=== PATIENT | female | born 1995 | race Two or more races ===

== ENCOUNTER 2024-10-14 19:23 | Emergency (ER) | payer OTHER, MEDICAID, SELFPAY ==
[2024-10-14 19:24] VITALS: BMI 33.6
[2024-10-14 19:38] VITALS: BP 131/79; PULSE 74; RESP 18; TEMP 36.9; O2SAT 97
--- NOTE | 2024-10-14 20:10 | EDNOTE_ITS ---
ED Allergic Reaction RME/HPI General Chief complaint: Allergic Reaction Stated complaint: FACIAL AND UPPER ARM SWELLING X 1 WEEK Time Seen by Provider: 10/14/24 19:58 Arrival date/time: 10/14/24 19:23 RME / HPI RME / HPI narrative: 29-year-old female presents to the ED with a 1 week history of swelling to her face, upper extremities, and lower extremities. She denies any difficulty breathing or difficulty swallowing. She denies any new medications, soaps, foods etc. She was seen by her primary care physician earlier today and told to buy [id number] water pills. We also did lab work. She denies any pain to her joints. She denies any recent illness with fever, chills, cough, upper respiratory complaints, nausea or vomiting, diarrhea or abdominal pain. She denies any dysuria, frequency, flank pain or low back pain. Related Data Home Medications ?Medication ?Instructions ?Recorded ?Confirmed vitamin-ferrous fumarate 1 tab PO QDAY 05/02/22 28 mg iron-folic acid 800 mcg tablet ( Vitamins with Minerals) Previous Rx's ?Medication ?Instructions ?Recorded ibuprofen 600 mg tablet 600 mg PO Q6H PRN pain #30 t abs 05/06/22 hydrochlorothiazide 12.5 mg tablet 12.5 mg PO QAM #30 tabs 10/15/24 Allergies Allergy/AdvReac Type Severity Reaction Status Date / Time No Known Allergies Allergy Verified 10/14/24 19:26 Review of Systems Review of Systems Systems Reviewed: All systems reviewed, normal except as documented Past Medical History Past Medical History NEUROLOGIC: Negative Neurological Disorders CARDIAC: Negative Cardiac Disorders or Congestive Heart Failure RESPIRATORY: Negative Chronic Obstructive Pulmonary Disease (COPD) or Asthma GASTROINTESTINAL: Negative Gastrointestinal Disorders GENITOURINARY: Negative Genitourinary Disorders or Renal Disease REPRODUCTIVE: Negative Pelvic Inflammatory Disease MUSCULOSKELETAL: Negative Musculoskeletal Disorders or Scoliosis ENDOCRINE: Negative Endocrine Disorders, Diabetes Mellitus Type 1 or Diabetes Mellitus Type 2 HEMATOLOGIC: Negative Blood Disorders or Anemia PSYCHO/SOCIAL: Negative Depression or Anxiety OTHER HISTORY: Negative Autoimmune Disease Family History FAMILY HISTORY: Positive Family Cardiac Disorders (sister developed blood clots throughout body after her delivery); Negative Family Psychiatric Problems, Family Respiratory Disorders, Family Gastrointestinal Problems, Family Cancer, Family Surgery or Family Anesthesia Reaction Social History SMOKING STATUS: Never smoker ED Exam Narrative Physical exam: Alert and oriented 29-year-old female, no acute distress. Mild edema noted to the face and upper extremities. 1+ pitting edema noted to bilateral lower extremities. No lip or tongue swelling is noted. No wheezing or stridor is noted. Lungs are clear, regular rate and rhythm without murmurs. Course Course Course Narrative: CBC reveals a normal white count, normal H&H and platelets. ESR is normal at less than 1. Chemistry panel is essentially normal with minimal changes. Normal renal function and liver function. BNP is less than 20, CRP is less than 0.5. TSH is normal at 3.67 and free T4 is normal at 1.15. Urinalysis is clear colorless urine with a specific gravity of 1.005 with negative nitrites and negative leukocyte Estrace and no bacteria. No imaging studies were performed. Quality Measures none Orders Category Date Time Status BNP [B-Type Natriuretic Peptide] Stat Lab 10/14/24 20:38 Completed CBC Stat Lab 10/14/24 20:38 Completed CMP [Comprehensive Metabolic Panel] Stat Lab 10/14/24 20:38 Completed CRP [C-Reactive Protein] Stat Lab 10/14/24 20:38 Completed ESR [Sed Rate (ESR)] Stat Lab 10/14/24 20:38 Completed Free T4 (Free Thyroxine) Stat Lab 10/14/24 20:38 Completed TSH [Thyroid Stimulating Hormone] Stat Lab 10/14/24 20:38 Completed Urinalysis Stat Lab 10/14/24 21:11 Completed Vital Signs Vital signs: Vital Signs Temperature 98.4 F 10/14/24 19:38 Pulse Rate 74 10/14/24 19:38 Respiratory Rate 18 10/14/24 19:38 Blood Pressure 131/79 H 10/14/24 19:38 Pulse Oximetry (%) 97 10/14/24 19:38 Oxygen Delivery Method Room Air 10/14/24 19:38 Allergic Reaction MDM Narrative MDM Narrative:: 29-year-old female presents to the ED with a 1 week history of swelling to her face, upper extremities, and lower extremities. She denies any difficulty breathing or difficulty swallowing. She denies any new medications, soaps, foods etc. She was seen by her primary care physician earlier today and told to buy [id number] water pills. We also did lab work. She denies any pain to her joints. She denies any recent illness with fever, chills, cough, upper respiratory complaints, nausea or vomiting, diarrhea or abdominal pain. She denies any dysuria, frequency, flank pain or low back pain. Alert and oriented 29-year-old female, no acute distress. Mild edema noted to the face and upper extremities. 1+ pitting edema noted to bilateral lower extremities. No lip or tongue swelling is noted. No wheezing or stridor is noted. Lungs are clear, regular rate and rhythm without murmurs. CBC reveals a normal white count, normal H&H and platelets. ESR is normal at less than 1. Chemistry panel is essentially normal with minimal changes. Normal renal function and liver function. BNP is less than 20, CRP is less than 0.5. TSH is normal at 3.67 and free T4 is normal at 1.15. Urinalysis is clear colorless urine with a specific gravity of 1.005 with negative nitrites and negative leukocyte Estrace and no bacteria. No imaging studies were performed. Patient data External records reviewed:: [facility] previous records Clinical information provided by:: patient Social determinants that could affect healthcare access:: none Patient has the following chronic illnesses:: N/A How is presenting disease/condition affected by chronic disease/condition?: no chronic disease Evaluation data The following diagnostics were reviewed and interpreted by me:: lab results Lab and/or radiology exams considered but not ordered:: N/A Interpretation Summary: CBC reveals a normal white count, normal H&H and platelets. ESR is normal at less than 1. Chemistry panel is essentially normal with minimal changes. Normal renal function and liver function. BNP is less than 20, CRP is less than 0.5. TSH is normal at 3.67 and free T4 is normal at 1.15. Urinalysis is clear colorless urine with a specific gravity of 1.005 with negative nitrites and negative leukocyte Estrace and no bacteria. No imaging studies were performed. Medications / Prescriptions Medications or Prescriptions considered but not ordered:: N/A Medication administrations:: None during visit Consultations Consultation(s) initiated? (list below): No Diagnosis Differential Diagnosis allergic reaction: anaphylaxis, allergic reaction, angioedema and other (Peripheral edema) Most likely diagnosis given after review of the tests above:: Peripheral edema Admission Indicated Admission indicated?: not indicated Explain why admission is indicated or not indicated:: Patient is stable for discharge Admission Request Was there a request for admission?: No Disposition Plan Disposition Plan: Discharge Discharge Attestation Discharge Attestation: The patient and all family members were given an opportunity to ask questions and understood the discharge instructions. Discharge instructions specifically effects, indications for sooner follow up or return to the emergency department, and the expected course of current diagnosis. Patient condition: Stable Discharge Plan Plan Patient Disposition: HOME (Self Care) Discharge Disposition comment: Stable Prescriptions/Referrals Prescriptions/Med Rec: New hydrochlorothiazide 12.5 mg tablet 12.5 mg PO QAM Qty: 30 0RF No Action vit-iron fum-folic ac [ Vitamin with Minerals] 28 mg iron- 800 mcg Tablet 1 tab PO QDAY ibuprofen 600 mg tablet 600 mg PO Q6H PRN (Reason: pain) Qty: 30 0RF Referrals: No Primary/Family,Physician [Primary Care Provider] - In 1 week Problem List Clinical Impression: Edema Patient/Caregiver Discharge Instructions Education Materials: Taking a Diuretic Additional Instructions: Follow-up with your primary care physician in 24 to 48 hours. Return to the ED for any new or worsening symptoms. Print Language: Burkinan Stand Alone Forms: Patsy Award Info., Patient Portal Info Letter PA/COMPUTER [employer]ERICAL CONTROL PROGRAMMER Supervising Physician PA/COMPUTER [employer]ERICAL CONTROL PROGRAMMER Supervising Physician: Dr. Tavera
[2024-10-14 20:47] LABS: Basophils % (Auto) 0 % (0-2.5); Eosinophils % (Auto) 0 % (0-10); Hematocrit 39.2 % (36.0-46.0); Immature Granulocytes % (Auto) 0 % (0-0); Immature Granulocytes Auto 0.02 Thou/mm3 (0.00-0.00); Lymphocytes % (Auto) 35 % (10-50); Mean Corpuscular HGB Conc 35.7 g/dl (31.0-37.0); Mean Corpuscular Hemoglobin 31.6 pg (25.0-35.0); Mean Corpuscular Volume 89 fL (80-100); Monocytes # (Auto) 0.7 Thou/mm3 (0.0-0.8); Monocytes % (Auto) 12 % (0-12); Neutrophils # (Auto) 3.1 Thou/mm3 (1.8-7.7); Neutrophils % (Auto) 53 % (37-80); Nucleated Red Blood Cell % 0 /100 WBC (0); Platelet Count 274 Thou/mm3 (140-440); RDW Standard Deviation 45.1 fL (36.4-46.3); Red Blood Count 4.43 Miln/mm3 (4.00-5.20); White Blood Count 5.8 Thou/mm3 (3.6-11.0)
[2024-10-14 20:59] LABS: Sed Rate (ESR) < 1 mm/hr (0-20)
[2024-10-14 21:07] LABS: B-Type Natriuretic Peptide < 20 pg/mL (0-100)
[2024-10-14 21:24] LABS: Collection Type, Urine Clean Catch
[2024-10-14 21:36] LABS: Bilirubin,Urine Negative (Negative); Blood,Urine Negative (Negative); Clarity,Urine Clear (Clear/Hazy); Color,Urine Colorless (Lt Yel-Yel); Glucose, Urine Negative (Negative); Ketones,Urine Negative (Negative); Leukocyte Esterase,Urine Negative (Negative); Nitrite,Urine Negative (Negative); PH,Urine 6.5 (5.0-7.0); Protein,Urine Negative (Neg - Trace); RBC,Urine 1 /hpf (0-3); Specific Gravity,Urine 1.005 (1.001-1.035); Squamous Epithelial Cell,Urine 3 /hpf (0-5); Urobilinogen,Urine Negative mg/dL (0.0-1.0); WBC,Urine 1 /hpf (0-5)
[2024-10-14 22:47] LABS: Alanine Aminotransferase 34 U/L (10-49); Albumin, Serum 4.3 gm/dL (3.5-5.0); Albumin/Globulin Ratio 1.9 (1.2-2.2); Alkaline Phosphatase 51 U/L (46-116); Anion Gap 13 (7-16); Aspartate Amino Transferase 34 U/L (0-34); BUN/Creatinine Ratio 12 Ratio (12-20); Bilirubin,Total 0.3 mg/dL (0.3-1.2); Blood Urea Nitrogen 7 mg/dL (9-23); Calcium 9.7 mg/dL (8.3-10.6); Calcium (Corrected) 9.7 mg/dL (8.5-10.1); Carbon Dioxide 19.7 mMol/L (20.0-31.0); Chloride 101 mMol/L (98-107); Creatinine (Component) 0.6 mg/dL (0.6-1.3); Estimated Creatinine Clearance 133.2 mL/min (>60); Free T4 (Free Thyroxine) 1.15 ng/dL (0.89-1.76); Globulin 2.3 gm/dL (2.3-3.5); Glucose 110 mg/dL (74-106); Osmolality,Calculated 267 (275-295); Potassium 3.9 mMol/L (3.4-5.1); Sodium 134 mMol/L (136-145); Thyroid Stimulating Hormone 3.67 uIU/mL (0.55-4.78); Total Protein 6.6 gm/dL (5.7-8.2); eGFR > 60 See Note
[2024-10-14 23:09] LABS: C-Reactive Protein < 0.5 mg/dL (0.0-0.9)
== END 2024-10-15 00:22 | disposition home or self-care (01) ==
PROVIDERS: Physician Assistant; Emergency Provider Emergency Medicine
DX: T78.40XA Allergy, unspecified, initial encounter (principal); R60.0 Localized edema
CPT/HCPCS: 36415; 80053; 81001; 81025; 82040; 83880; 84439; 84443; 85025; 85652; 86140; 99283

== ENCOUNTER → 2024-10-15 | Outpatient (CLI) | payer OTHER, MEDICAID, SELFPAY ==
[2024-10-21 06:55] LABS: ANA Pattern NUCLEAR, HOMOGENEOUS; ANA Screen, IFA POSITIVE (NEGATIVE)
== END | disposition home or self-care (01) ==
LOC: COPL 11:27
PROVIDERS: Referring Provider Physician Assistant; Visit Provider Physician Assistant
DX: L94.0 Localized scleroderma [morphea] (principal)
CPT/HCPCS: 36415; 86038